=== PATIENT | male | born 1995 | race Caucasian/White ===

== ENCOUNTER → 2022-01-06 11:44 | Outpatient (CLI) | payer BC, SELFPAY ==
--- NOTE | ~2022-01-06 | US_ITS ---
US scrotum doppler INDICATION: Right varicocele. Palpable abnormality of the right testicle. TECHNIQUE: Testicular sonogram utilizing grayscale and color Doppler FINDINGS: The testes are normal in size and appearance. No focal lesions are seen. The right testes measures 4.9 x 2.6 x 3.2 cm centimeters, and the left testis measures 4.7 x 3 x 2.8 cm cm. There is n ormal vascular flow to both testes. There is a minimally complicated right epididymal cyst measuring 2 cm. There is a right varicocele. IMPRESSION: 1. Minimally complicated 2 cm right epididymal cysts. 2: Right varicocele. Reviewed, dictated and finalized at location A. [employer]
== END ==
PROVIDERS: PCP Family Medicine; Visit Provider Family Medicine
DX: N50.89 Other specified disorders of the male genital organs (principal)
CPT/HCPCS: 76870; 93976